=== PATIENT | male | born 1985 | race Caucasian/White ===

== ENCOUNTER 2019-07-01 05:58 | Emergency (ER) | payer BC ==
[2019-07-01] MEDS ORDERED: Fluorescein 1 MG Ophth Strip EYEBOTH ONE (05:59)
[2019-07-01] MEDS ORDERED: Tetracaine HCl/PF 0.5% 4 ML Bottle EYEBOTH ONE (05:59)
[2019-07-01] MEDS ORDERED: Ciprofloxacin 0.3% Ophth Soln 5 ML Bottle ONE (06:39)
[2019-07-01] MEDS ORDERED: Tetracaine HCl/PF 0.5% 4 ML Bottle EYELF ONE (06:41)
[2019-07-01] MEDS ORDERED: Fluorescein 1 MG Ophth Strip EYELF ONE (06:48)
[2019-07-01] MEDS ORDERED: Acetaminophen 500 MG Tab PO ONE (06:56)
[2019-07-01] MEDS ORDERED: Ibuprofen 200 MG Tab PO ONE (06:56)
[2019-07-01] MEDS ORDERED: Ciprofloxacin 0.3% Ophth Soln 2.5 ML Bottle EYELF SCH (07:00)
--- NOTE | 2019-07-01 07:05 | EDM.PDOC ---
ED HPI GENERAL MEDICAL PROBLEM - General Chief Complaint: ENT Problem Stated Complaint: L)Eye irritation Time Seen by Provider: 07/01/19 06:30 Source of Information: Reports: Patient History Limitations: Reports: No Limitations - History of Present Illness INITIAL COMMENTS - FREE TEXT/NARRATIVE: Henri is a 34 yo male who presents to the ED with complaints of something in his left eye. He states it started bothering him around 4:00 am. 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 He did notice a slight distortion in his vision yesterday evening and this morning. States he feels a pressure and that there must be something in his eye. Denies contact wear use. Left Eye Pain Score (Numeric/FACES): 8 - Related Data Allergies Allergy/AdvReac Type Severity Reaction Status Date / Time No Known Allergies Allergy Verified 07/01/19 06:01 Home Meds: Home Meds . [No Known Home Meds] 07/01/19 [History] Past Medical History HEENT History: Reports: None Gastrointestinal History: Reports: GERD Genitourinary History: Reports: Renal Calculus - Past Surgical History GI Surgical History: Reports: None Male Surgical History: Reports: None Social & Family History - Family History Family Medical History: Noncontributory - Tobacco Use Smoking Status *Q: Current Every Day Smoker Years of Tobacco use: 10 Packs/Tins Daily: 1 - Caffeine Use Caffeine Use: Reports: None - Recreational Drug Use Recreational Drug Use: No ED ROS GENERAL - Review of Systems Review Of Systems: Comprehensive ROS is negative, except as noted in HPI. ED EXAM GENERAL W FULL EYE - Physical Exam Exam: See Below Eye Exam: Left Eye: Corneal Abrasion, Foreign Body (6 oclock position) Cornea Exam: Left: Corneal Abrasion, Foreign Body (metal embedded at 6 oclock and 4 oclock position), Examined with Flourescein Extraocular Movements: Bilateral: Intact Pupils: Normal Accommodation ED EYE w/ Add Procedure - Eye Procedure Alcaine Drops Administered: Yes Eye FB Removal: Removal w/ Cotton Swab, Removal w/ Needle Antibiotic Oinment/Drps Admin: Left Eye Course - Vital Signs Last Recorded V/S: Last Vital Signs Temp 97.3 F 07/01/19 06:01 Pulse 105 H 07/01/19 06:01 Resp 18 07/01/19 06:01 BP 153/75 H 07/01/19 06:01 Pulse Ox 97 07/01/19 06:01 - Orders/Labs/Meds Orders: Active Orders 24 hr Category Date Time Status Ciprofloxacin [Ciloxan 0.3% Ophth Soln] Med 07/01/19 07:00 Active 1 ml EYELF ASDIRECTED Medication Orders Ciprofloxacin (Ciloxan 0.3% Ophth Soln) 1 ml EYELF ASDIRECTED RODRIGUEZ Meds: Medications Generic Name Dose Route Start Last Admin Trade Name Freq PRN Reason Stop Dose Admin Ciprofloxacin 1 ml 07/01/19 07:00 Ciloxan 0.3% Ophth Soln EYELF ASDIRECTED RODRIGUEZ Discontinued Medications Generic Name Dose Route Start Last Admin Trade Name Freq PRN Reason Stop Dose Admin Acetaminophen 1,000 mg 07/01/19 06:56 Tylenol Extra Strength PO 07/01/19 06:57 ONETIME ONE Ciprofloxacin Confirm 07/01/19 06:39 07/01/19 06:59 Ciloxan 0.3% Ophth Soln Administered 07/01/19 06:40 1 drop Dose Administration 5 ml .ROUTE .STK-MED ONE Fluorescein Sodium 1 mg 07/01/19 06:48 07/01/19 06:50 Ful-Ayesha EYELF 07/01/19 06:49 1 mg ONETIME ONE Administration Ibuprofen 400 mg 07/01/19 06:56 Motrin PO 07/01/19 06:57 ONETIME ONE Tetracaine HCl 1 ml 07/01/19 06:41 07/01/19 06:43 Tetracaine 0.5% Steri-Unit Ann EYELF 07/01/19 06:42 1 drop ONETIME ONE Administration Departure - Departure Time of Disposition: 07:04 Disposition: Home, Self-Care 01 Clinical Impression: Foreign body of left eye Qualifiers: Encounter type: initial encounter Qualified Code(s): T15.92XA - Foreign body on external eye, part unspecified, left eye, initial encounter - Discharge Information Additional Instructions: 1) Cipro eye drops, 1-2 drops every 2-4 hours 2) Will consult with Dr. Vargas and will need to see her today for further removal of foreign body 3) We will call with when to see her. 4) Refrain from rubbing eye 5) Recommend wearing sunglasses in the light 6) 1000mg of tylenol and 400mg of ibuprofen was given at 645 in the ED * Return to ED if worsening of condition or any concerns before seeing eye doctor today. - Problem List & Annotations (1) Foreign body of left eye SNOMED Code(s): 13561687 Code(s): T15.92XA - FOREIGN BODY ON EXTERNAL EYE, PART UNSP, LEFT EYE, INIT Status: Acute - My Orders Last 24 Hours: My Active Orders 07/01/19 07:00 Ciprofloxacin [Ciloxan 0.3% Ophth Soln] 1 ml EYELF ASDIRECTED - Assessment/Plan Last 24 Hours: My Active Orders 07/01/19 07:00 Ciprofloxacin [Ciloxan 0.3% Ophth Soln] 1 ml EYELF ASDIRECTED Plan: We were able to remove a piece of metal from the eye. There appears to still be a piece embedded at the 6 oclock position. Will refer to Dr. Vargas for further treatment.
== END 2019-07-01 07:15 | disposition home or self-care (01) ==
LOC: CC.ED 05:58
DX: T15.92XA Foreign body on external eye, part unspecified, left eye, initial encounter (principal); F17.210 Nicotine dependence, cigarettes, uncomplicated
CPT/HCPCS: 65220; 99283; A9270

== ENCOUNTER 2020-05-27 13:56 | Emergency (ER) | payer BC ==
[2020-05-27] MEDS ORDERED: Diphtheria,Pertussis(Acell),Tetanus Vaccine 0.5 ML Syringe IM ONE (14:25)
--- NOTE | 2020-05-27 14:55 | EDM.PDOC ---
ED HPI GENERAL MEDICAL PROBLEM - General Chief Complaint: Laceration Stated Complaint: LT HAND Time Seen by Provider: 05/27/20 14:53 Source of Information: Reports: Patient History Limitations: Reports: No Limitations - History of Present Illness INITIAL COMMENTS - FREE TEXT/NARRATIVE: This patient is a 34 year old male that presents to the ER. Patient reports he was sweeping his garage when his hand accidently hit the side of truck. He reports laceration at the site. Denies pain, or tenderness or vicky tenderness. Onset: Today Onset Date: 05/27/20 Duration: Hour(s): (1) Location: Reports: Upper Extremity, Left Front/Back Body Image: 1 - laceration Severity: Mild Improves with: Reports: None Worsens with: Reports: None Associated Symptoms: Reports: No Other Symptoms - Related Data Allergies Allergy/AdvReac Type Severity Reaction Status Date / Time No Known Allergies Allergy Verified 05/27/20 14:10 Home Meds: Home Meds . [No Known Home Meds] 07/01/19 [History] Past Medical History HEENT History: Reports: None Gastrointestinal History: Reports: GERD Genitourinary History: Reports: Renal Calculus - Past Surgical History GI Surgical History: Reports: None Male Surgical History: Reports: None Social & Family History - Family History Family Medical History: Noncontributory - Tobacco Use Tobacco Use Status *Q: Never Tobacco User Second Hand Smoke Exposure: No - Caffeine Use Caffeine Use: Reports: Coffee, Soda - Recreational Drug Use Recreational Drug Use: No ED ROS GENERAL - Review of Systems Review Of Systems: See Below Constitutional: Reports: No Symptoms HEENT: Reports: No Symptoms Respiratory: Reports: No Symptoms Cardiovascular: Reports: No Symptoms Endocrine: Reports: No Symptoms GI/Abdominal: Reports: No Symptoms : Reports: No Symptoms Musculoskeletal: Reports: No Symptoms. Denies: Hand Pain, Joint Pain, Joint Swelling Skin: Reports: Wound (laceration left hand) Neurological: Reports: No Symptoms Psychiatric: Reports: No Symptoms Hematologic/Lymphatic: Reports: No Symptoms ED EXAM, SKIN/RASH Exam: See Below Exam Limited By: No Limitations General Appearance: Alert, WD/WN, No Apparent Distress Cardiovascular: Normal Peripheral Pulses Peripheral Pulses: 2+: Radial (L), Radial (R) Extremities: Normal Range of Motion, Non-Tender, No Pedal Edema, Normal Capillary Refill, Other (laceration left hand back) Neurological: Alert, Oriented Psychiatric: Normal Affect, Normal Mood Skin: Warm, Dry, Normal Color, No Rash, Wound/Incision (laceration left dorsal of hand) Location, Skin: Upper Extremity, Left ED SKIN PROCEDURES - Laceration/Wound Repair Left Hand Appearance: Superficial Distal NVT: Neuro & Vascular Intact, No Tendon Injury Anesthetic Type: Local Local Anesthesia - Lidocaine (Xylocaine): 1% Plain Local Anesthetic Volume: 3cc Skin Prep: Chlorhexidine (Hibiciens) Exploration/Debridement/Repair: Wound Explored, In a Bloodless Field, Explored to Base, Minimal Debridement, Wound Margins Revised Closed with: Sutures Lac/Wound length In cm: 4 Suture Size: 5-0 # of Sutures: 8 Suture Type: Nylon Tetanus Status Addressed: Yes Complications: No Course - Vital Signs Last Recorded V/S: Last Vital Signs Temp 97.2 F 05/27/20 14:11 Pulse 93 05/27/20 14:11 Resp 16 05/27/20 14:11 BP 161/98 H 05/27/20 14:11 Pulse Ox 97 05/27/20 14:11 - Orders/Labs/Meds Orders: Active Orders 24 hr Category Date Time Status Vaccines to be Administered [RC] PER UNIT ROUTINE Care 05/27/20 14:25 Active Meds: Medications Discontinued Medications Generic Name Dose Route Start Last Admin Trade Name Leonel PRN Reason Stop Dose Admin Diphtheria/Tetanus/Acell Pertussis 0.5 ml 05/27/20 14:25 05/27/20 14:29 Adacel IM 05/27/20 14:26 0.5 ml .ONCE ONE Administration Lidocaine HCl 5 ml 05/27/20 14:25 05/27/20 14:29 Xylocaine-Mpf 1% INJECT 05/27/20 14:26 5 ml ONETIME ONE Administration Departure - Departure Time of Disposition: 14:53 Disposition: Home, Self-Care 01 Condition: Fair Clinical Impression: Laceration - Discharge Information *PRESCRIPTION DRUG MONITORING PROGRAM REVIEWED*: Not Applicable *COPY OF PRESCRIPTION DRUG MONITORING REPORT IN PATIENT JENNIFER: Not Applicable Instructions: Laceration Care, Adult, [id number], Sutures, [place], or Adhesive Wound Closure, [id number] Referrals: PCP,Unknown [Primary Care Provider] - Forms: ED Department Discharge Additional Instructions: Followup with primary care provider in about 7 days for suture removal and evaluation Return to the ER for worsening of condition or any emergent concerns such as redness, drainage, fever, vomiting, or other concerns Wash the wound twice a day gently with soap and water, rinse, pat dry Keep clean No using the left hand until sutures removed Tylenol or Motrin for pain as needed Sepsis Event Note (ED) - Evaluation Sepsis Screening Result: No Definite Risk - Focused Exam Vital Signs: Vital Signs Temp Pulse Resp BP Pulse Ox 05/27/20 14:11 97.2 F 93 16 161/98 H 97 - My Orders Last 24 Hours: My Active Orders 05/27/20 14:25 Vaccines to be Administered [RC] PER UNIT ROUTINE - Assessment/Plan Last 24 Hours: My Active Orders 05/27/20 14:25 Vaccines to be Administered [RC] PER UNIT ROUTINE Plan: PLEASE SEE RN NOTE FOR PFSH
== END 2020-05-27 15:01 | disposition home or self-care (01) ==
LOC: CC.ED 13:56
DX: S61.412A Laceration without foreign body of left hand, initial encounter (principal); Z23 Encounter for immunization; W22.8XXA Striking against or struck by other objects, initial encounter
CPT/HCPCS: 12002; 90471; 90715; 99282; J2001